=== PATIENT | male | born 1960 | race Caucasian/White ===

== ENCOUNTER 2018-06-09 11:12 | Emergency (ER) | payer MEDICAID, OTHER ==
[2018-06-09] MEDS: KETOROLAC 30 MG INJ IM (12:02)
== END 2018-06-09 13:23 | disposition home or self-care (01) ==
LOC: FTE 11:12
DX: K08.89 Other specified disorders of teeth and supporting structures (principal); I10 Essential (primary) hypertension; E11.9 Type 2 diabetes mellitus without complications; Z79.82 Long term (current) use of aspirin; Z79.4 Long term (current) use of insulin
CPT/HCPCS: 70140; 96372; 99284-25

== ENCOUNTER 2018-09-29 06:40 | Emergency (ER) | payer OTHER, MEDICAID | END 2018-09-29 08:05 | disposition home or self-care (01) | LOC: E/R 06:40 | DX: L03.032 Cellulitis of left toe (principal); I10 Essential (primary) hypertension; E11.9 Type 2 diabetes mellitus without complications; Z79.4 Long term (current) use of insulin; Z79.82 Long term (current) use of aspirin | CPT/HCPCS: 73630; 73630-LT; 99283-25 ==